=== PATIENT | female | born 1930 | race American Indian/Alaskan Native ===

== ENCOUNTER 2016-05-11 06:04 | Day surgery (SDC) | payer MEDICARE ==
[2016-05-08 11:57] LABS: Anion Gap 18 mmol/L; Blood Urea Nitrogen 20 mg/dL (7-17); Calcium 9.4 mg/dL (8.4-10.2); Carbon Dioxide 23 mmol/L (22-30); Glucose 117 mg/dL (65-100); Potassium 5.1 mmol/L (3.6-5.0); Sodium 141 mmol/L (137-145)
--- NOTE | 2016-05-08 17:57 | Anesthesia Consultation ---
Anesthesia Consult and Med Hx Date of service: 05/08/16 - Airway Anesthetic Teeth Evaluation: Partials ROM Head & Neck: Adequate Mental/Hyoid Distance: Adequate Mallampati Class: Class II Intubation Access Assessment: Probably Good (UPPER, LOWER) - Pulmonary Exam CTA: Yes - Cardiac Exam Cardiac Exam: RRR - Pre-Operative Health Status ASA Pre-Surgery Classification: ASA3 Proposed Anesthetic Plan: MAC - Pulmonary Hx Smoking: Yes (STOPPED X 30 YRS (2-3 PACKS PER WEEK)) Hx Asthma: No Hx Sleep Apnea: No (MARELY PRE SCREEN LOW RISK) - Cardiovascular System Hx Hypertension: Yes (X 30 YRS) Hx Coronary Artery Disease: Yes (ECHO 11/04: NORMAL EF) Hx Percutaneous Transluminal Coronary Angioplasty (PTCA): Yes (STENTS X 3) Hx Cardia Arrhythmia: Yes ("IRREGULAR HEARTBEAT") Hx Heart Murmur: Yes - Central Nervous System Hx Neuromuscular Disorder: Yes (RAYNAUDS SYNDROME, SCLERODERMA) Hx Seizures: No CVA: No Hx Psychiatric Problems: Yes (ANXIETY) - Endocrine Hx Renal Disease: No (ONE KIDNEY, NORMAL RENAL FUNCTION) Hx End Stage Renal Disease: No Hx Insulin Dependent Diabetes: No - Other Systems Hx Cancer: No Hx Obesity: No - Additional Comments Anesthesia Medical History Comments: CARDIAC CLEARANCE ON CHART
[~2016-05-11 06:04] MED LIST: NACL 0.9% 1000 ML 1,000 ML IV SCH; PEPCID PO NR
[2016-05-11] MEDS ORDERED: NACL BACTERIOSTATIC INFILTRATI ONE (06:22)
[2016-05-11] MEDS ORDERED: SUBLIMAZE ONE (07:10)
[2016-05-11] MEDS ORDERED: DIPRIVAN 10 MG/ML IV ONE ×2 (07:10→07:48)
[2016-05-11] MEDS ORDERED: CLEOCIN 900 MG/50 mL 900 MG/50 ML BAG IV SCH (07:23)
--- NOTE | 2016-05-11 07:24 | Anesthesia Day of Surgery ---
Anesthesia Day of Surgery - Day of Surgery Patient Examined: Yes Patient H&P Reviewed: Yes Patient is NPO: Yes
[2016-05-11] MEDS ORDERED: MARCAINE 0.25% INFILTRATI ONE ×2 (07:40)
[2016-05-11] MEDS ORDERED: XYLOCAINE 1% 20 mL INFILTRATI ONE ×2 (07:40)
[2016-05-11] MEDS ORDERED: ZOFRAN ONE (07:41)
[2016-05-11] MEDS ORDERED: NEO SYNEPHRINE ONE (07:41)
[2016-05-11] MEDS ORDERED: XYLOCAINE MPF 2% ONE (07:41)
[2016-05-11] MEDS ORDERED: NACL 0.9% 100 ML ONE (07:43)
[2016-05-11] MEDS ORDERED: ROBINUL ONE (07:45)
[2016-05-11] MEDS ORDERED: DECADRON IV ONE (08:01)
[2016-05-11 09:06] VITALS: BP 116/67
--- NOTE | 2016-05-11 09:36 | XRay Report ---
Right foot 2 views: History: Postop bunionectomy. Findings: Generalized demineralization. Stable bunionectomy. No acute fracture or dislocation or periosteal reaction or soft tissue calcification. Impression: Stable postop changes.
--- NOTE | 2016-05-11 10:45 | Operative Report ---
PREOPERATIVE DIAGNOSES: 1. Contracted second digit, right foot. 2. Contracted third digit, right foot. POSTOPERATIVE DIAGNOSES: 1. Contracted second digit, right foot. 2. Contracted third digit, right foot. SURGICAL PROCEDURE: 1. Arthroplasty, second digit, right foot. 2. Arthroplasty, third digit, right foot. ANESTHESIA: Local with IV sedation. TOURNIQUET: Pneumatic ankle tourniquet. DESCRIPTION OF PROCEDURE: The patient was given 900 mg of Cleocin secondary to penicillin allergy. At this time, a well-padded pneumatic ankle tourniquet was placed 2-3 cm proximal to the medial and lateral malleoli and at this time, the foot was then scrubbed, prepped and draped in the usual aseptic manner without incident and at this time, 4 mL of a 1:1 mixture of 1% lidocaine plain, 0.25% Marcaine plain was infiltrated to the second and third digits, 4 mL in volume. At this time, the foot was exsanguinated and tourniquet was inflated to 200 mmHg secondary to her Raynaud's disease. At this time, attention was directed to the contracted second digit and which the toe was directed in a medial direction. Therefore, a tear dropping incision was made at the distal interphalangeal joint with the base being laterally. There were 2 semi-converging elliptical incision was made at the proximal phalanx of the third digit without incident. At this time, the lips of tissues were both removed from the second and third digit and passed from the operative field. Arthroplasty was performed at the distal interphalangeal joint of the second digit and the proximal interphalangeal joint of the third digit with removal of the bone just proximal to the surgical neck. The area was contoured with rotating football bur. The area was flushed copiously with normal sterile saline. The tendon structure was closed with 4-0 Vicryl while the both toes were held in a more corrected position. At this time, 4.0 Prolene was used to coapt tissues with simple interrupted stitches. A 1 mL of dexamethasone phosphate was infiltrated in the infected site. The area was dressed with Adaptic saturated in iodine, 2 x 2's, 2-inch Kem, 3-inch Kem. The pneumatic ankle tourniquet was deflated with prompt hyperemic response to all digits of the affected toe. The patient will be transferred to recovery and once be monitored and dispensed with a postop surgical shoe and weightbearing to tolerance, and x-rays prior to discharge. The patient tolerated the procedure and anesthesia well. JOB# [id number] GILBERT/NTS
--- NOTE | 2016-05-12 02:02 | Admit Criteria Form ---
Admission Criteria Documentation: AMBULATORY SURGERY EXCEPTION CRITERIA Ambulatory Surgery Exception Criteria ( Place 'X' for any and all applicable criteria): Surgery or procedure performed on ambulatory basis may require inpatient stay for[A] ANY ONE of the following(1)(2)(3)(4)(5)(6)(7)(8)(9): [X] I. A preoperative situation, condition, or finding that warrants inpatient stay as indicated by ANY ONE of the following: [] a) Inpatient care needed because of severity of a disease or condition rather than the surgery (eg, severe cardiac or respiratory disease, severe infection) (15) (16 ) (17) (18) [] b) Emergent procedure (eg, angioplasty for acute ischemia)(19) [] c) Complex surgical approach or situation as indicated by ANY ONE of the following(3): [] i) Open approach needed instead of usual endoscopic, transcatheter, or other less invasive procedure [] ii) Difficult approach because of previous operation [] iii) Airway monitoring required after open neck procedures(20)(21) [] iv) Large mass requiring unusually extensive dissection [] v) Additional complicating feature requiring inpatient care (eg, drain management)(22(23): [X] d) Major surgery in a pt with high anesthetic risk as indicated by ANY ONE of the following (2)(3)(5)(7)(8): [X] i) ASA risk class III or higher (severe systemic disease impairing function) [D] [] ii) Advanced age (eg, older than 85 years)(14)(24) [] iii) Symptomatic heart failure(25) [] iv) Symptomatic asthma or COPD(8)(21) [] v) Morbid obesity with hemodynamic or respiratory problems(20)( 21)(26)(27) [] vi) Obstructive sleep apnea(20)(21) [] vii) Former premature infants who are younger than 60 weeks [] viii) High risk for severe postoperative abnormalities (eg, severe postoperative hypocalcemia after parathyroidectomy for severe hyperparathyroidism)(27)( 28) [] ix) Unstable angina(25) [] e) Drug-related risk requiring inpatient stay as indicated by ANY ONE of the following(5)(10)(14)(32)(33) [] i) Procedure requires discontinuing drugs or other therapy (eg , antiarrhythmic medication, antiseizure medication), which necessitates inpatient observation or treatment.(18)(31) [] ii) Major surgery and high risk drug use as indicated by ANY ONE of the following: [] 1) Active abuse of cocaine or similar drug [] 2) Monoamine oxidase inhibitor use [] 3) Other drug identified as posing risk [] f) Inadequate outpatient care situation as indicated by ANY ONE of the following(5)(10)(14)(32)(33) [] i) Patient lives remote from medical facility and procedure has urgent complication potential, and temporary nearby residence cannot be arranged [] ii) Patient will have postprocedure incapacitation and inadequate assistance at home, or alternative level of care cannot be arranged. [] iii) Patient will have long general anesthesia or procedure side effect resolution time, and competent person to stay with patient on first postoperative night at home or alternative level of care cannot be arranged. []iv) Other inadequate outpatient situation that cannot be handled by other means [] II. A perioperative event, condition, or finding that warrants inpatient stay as indicated by ANY ONE of the following (1)(2)(3): [] a) Inadequate physiologic recovery: cardiovascular, respiratory, or hemodynamic status not normal or near preoperative baseline(18) [] b) Hemodynamic instability [] c) Patient not alert with near normal or baseline mental status [] d) Temperature not normal or as expected and not appropriate for outpatient treatment of condition [] e) Ambulatory or appropriate activity level status not yet achieved post procedure [E](34)(35)(36) [] f) Operative site not appropriate (eg, unexpected or excessive drainage or bleeding) [] g) Postoperative effects not resolved or adequately managed (eg, significant pain or vomiting not appropriate for outpatient or next level of care)(10)(12) [] h) Complicating features requiring inpatient care as indicated by ANY ONE of the following(37): [] i) Severe complications of procedure (eg, bowel injury, airway compromise, vascular injury,severe hemorrhage) [] ii) Extensive (eg, dissection far beyond usual scope of procedure ) or prolonged (eg, 120 minutes beyond usual) surgery needed requiring inpatient postoperative care [] iii) Conversion to an open or complex procedure that requires inpatient care (eg, open vs laparoscopic cholecystectomy, abdominal vs vaginal hysterectomy)(38) [] iv) Comorbid condition or test result identified during or post procedure that requires inpatient care (7) [] v) Malignant hyperthermia(30) [] vi) Other complicating feature requiring inpatient care(22)(23) Inpatient stay may be needed until ALL of the following are present (1)(2)(3)(4) (5)(6)(10)(14)(33)(40): []a) Physiologic recovery: cardiovascular, respiratory, and hemodynamic status normal or near preoperative baseline []b) Hemodynamic stability []c) Patient alert, with near normal or baseline mental status []d) Temperature appropriate: patient afebrile or temperature appropriate for outpt treatment of condition []e) Activity level appropriate: ambulatory or appropriate activity level post procedure []f) Operative site appropriate as indicated by ALL of the following: []i) Site dry or with expected drainage []ii) Any blood noted is as expected for procedure. []g) Postoperative effects resolved or managed as indicated by ALL of the following: []i) Pain management appropriate for outpatient (or next level of) care(10) []ii) Minimal nausea and vomiting: if present, successfully treated with oral medication(12) []iii) Headache, dizziness, or drowsiness (if present) are mild. []h) Voiding status acceptable as indicated by ANY ONE of the following: []i) Voiding spontaneously []ii) No voiding but instructions given for follow-up in 6 to 8 hours []iii) Urinary catheter in place, and instructions given for follow-up []i) Complicating features requiring inpatient care manageable at a lower level of care(37) []j) Comorbid conditions manageable at a lower level of care(37) The original [employer] content created by [employer] has been revised. The portions of the content which have been revised are identified through the use of italic text or in bold, and [facility] [employer] has neither reviewed nor approved the modified material. All other unmodified content is copyright [employer]. Please see references footnoted in the original [employer] edition 2016 Admission Criteria Met: Yes
== END 2016-05-11 09:27 | disposition home or self-care (01) ==
LOC: OR 06:04
PROVIDERS: ATTEND Podiatrist Foot & Ankle Surgery
DX: M20.41 Other hammer toe(s) (acquired), right foot (principal); I10 Essential (primary) hypertension; I25.10 Atherosclerotic heart disease of native coronary artery without angina pectoris; I73.00 Raynaud's syndrome without gangrene; F41.9 Anxiety disorder, unspecified; Z95.5 Presence of coronary angioplasty implant and graft; Z87.891 Personal history of nicotine dependence
CPT/HCPCS: 28285; 36415; 73620; 80048; J1100; J2370; J2405; J2704; J3010; J7030

== ENCOUNTER 2017-11-21 10:21 | Inpatient (IN) | payer MEDICARE ==
[2017-11-21 11:24] LABS: Basophils # (Auto) 0.1 K/mm3 (0.0-0.1); Basophils % (Auto) 0.8 % (0.0-1.8); Eosinophils # (Auto) 0.1 K/mm3 (0.0-0.4); Eosinophils % (Auto) 0.9 % (0.0-4.3); Hematocrit 42.4 % (30.3-42.9); Lymphocytes # (Auto) 1.6 K/mm3 (1.2-5.4); Lymphocytes % (Auto) 18.7 % (13.4-35.0); Mean Corpuscular HGB Conc 33 % (30-34); Mean Corpuscular Hemoglobin 30 pg (28-32); Mean Corpuscular Volume 90 fl (79-97); Monocytes # (Auto) 0.5 K/mm3 (0.0-0.8); Monocytes % (Auto) 6.2 % (0.0-7.3); Platelet Count 171 K/mm3 (140-440); Red Blood Count 4.72 M/mm3 (3.65-5.03); Red Cell Distribution Width 15.1 % (13.2-15.2)
[2017-11-21 11:34] LABS: INR 0.95 (0.87-1.13)
[2017-11-21 11:35] LABS: Partial Thromboplastin Time 43.8 Sec. (24.2-36.6); Thrombin Time 17.6 Sec. (15.1-19.6)
[2017-11-21 11:42] LABS: BUN/Creatinine Ratio 16; Blood Urea Nitrogen 21 mg/dL (7-17); Calcium 9.7 mg/dL (8.4-10.2); Hemolysis Index 40
--- NOTE | 2017-11-21 11:44 | Emergency Department Report ---
ED General Adult HPI - General Chief complaint: Neuro Symptoms/Deficit Stated complaint: CHEST PAIN Time Seen by Provider: 11/21/17 11:17 Source: patient, family Mode of arrival: Ambulatory Limitations: No Limitations - History of Present Illness Initial comments: This is an 87-year-old female that has been placed on amiodarone, metoprolol was previously on other medications do include Plavix and lisinopril by her supervisor [employer] November 13. He states that since then she has been having intermittent tremors of the left arm. During these episodes the patient has difficulty with her use of her left arm such as an lifting and controlling objects. However, I do not believe she is experienced any independent weakness of the left arm without tremor. She was in contact with her supervisor [employer] Dr. Sosa who suggested that she get a neurological workup in the emergency department today. Patient is not currently suffering from tremor. She denies any focal weakness. She's had no headaches. She states that she has recently lost about 10 pounds associated with her recent diuresis. -: Gradual, week(s) Location: left, upper extremity (tremor nonpainful) - Related Data Home Medications Medication Instructions Recorded Confirmed Last Taken Amiodarone HCl [Amiodarone 100 MG 200 mg PO DAILY 11/21/17 11/21/17 Unknown TAB] Furosemide [Lasix] 20 mg PO DAILY 11/21/17 11/21/17 Unknown Lisinopril [Zestril] 10 mg PO DAILY 11/21/17 11/21/17 Unknown Metoprolol [Lopressor] 25 mg PO DAILY 11/21/17 11/21/17 Unknown Pravastatin [Pravachol] 20 mg PO QHS 11/21/17 11/21/17 Unknown Previous Rx's Medication Instructions Recorded Last Taken Type Aspirin [Adult Low Dose Aspirin EC] 81 mg PO DAILY #90 tablet. 12/17/16 Unknown Rx Clopidogrel Bisulfate [Plavix] 75 mg PO DAILY #90 tablet 12/17/16 Unknown Rx Allergies Allergy/AdvReac Type Severity Reaction Status Date / Time Penicillins Allergy Itching Verified 11/03/15 12:07 Sulfa (Sulfonamide Allergy Itching Verified 11/03/15 12:07 Antibiotics) Tetracyclines Allergy Itching Verified 11/03/15 12:07 ED Review of Systems ROS: Stated complaint: CHEST PAIN Other details as noted in HPI ED Past Medical Hx - Past Medical History Previous Medical History?: Yes Hx Hypertension: Yes (X 30 YRS) Hx GERD: Yes Hx Renal Disease: No (ONE KIDNEY, NORMAL RENAL FUNCTION) Hx Arthritis: Yes Hx Headaches / Migraines: Yes (MIGRAINES) Hx Seizures: No Hx Asthma: No Hx HIV: No Additional medical history: Raynaud's - Surgical History Past Surgical History?: Yes Hx Coronary Stent: Yes (X 3 2010; TAKES PLAVIX,ASA, "TOLD TO STOP 7 DAYS BEFORE SX") Hx Cholecystectomy: Yes () - Social History Smoking Status: Never Smoker Substance Use Type: None - Medications Home Medications: Home Medications Medication Instructions Recorded Confirmed Last Taken Type Aspirin [Adult Low Dose Aspirin EC] 81 mg PO DAILY #90 tablet. 12/17/16 Unknown Rx Clopidogrel Bisulfate [Plavix] 75 mg PO DAILY #90 tablet 12/17/16 11/21/17 Unknown Rx Amiodarone HCl [Amiodarone 100 MG 200 mg PO DAILY 11/21/17 11/21/17 Unknown History TAB] Furosemide [Lasix] 20 mg PO DAILY 11/21/17 11/21/17 Unknown History Lisinopril [Zestril] 10 mg PO DAILY 11/21/17 11/21/17 Unknown History Metoprolol [Lopressor] 25 mg PO DAILY 11/21/17 11/21/17 Unknown History Pravastatin [Pravachol] 20 mg PO QHS 11/21/17 11/21/17 Unknown History ED Physical Exam - General Limitations: No Limitations ED Course Vital Signs 11/21/17 11/21/17 11/21/17 10:39 11:13 11:30 Temperature 97.7 F Pulse Rate 81 70 70 Respiratory 16 21 18 Rate Blood Pressure 111/66 180/75 O2 Sat by Pulse 95 99 Oximetry 11/21/17 11/21/17 11/21/17 11:35 12:00 12:30 Temperature Pulse Rate 78 82 Respiratory 18 13 18 Rate Blood Pressure 180/75 178/111 O2 Sat by Pulse 95 83 L Oximetry - Reevaluation(s) Reevaluation #1: 11/21/17 13:00 Patient remains clinically stable. She had quite bit of ectopy on her EKG. Her renal function has worsened. Her potassium is 5.6. I believe there is ample reason to reduce the patient's potassium and give her judicious fluid as well as admit her to the hospital. I will discuss with Dr. Nieto ED Medical Decision Making - Lab Data Result diagrams: 11/21/17 11:10 11/21/17 11:10 Laboratory Results - last 24 hr 11/21/17 11/21/17 11/21/17 11:10 11:10 11:10 WBC 8.7 RBC 4.72 Hgb 14.0 Hct 42.4 MCV 90 MCH 30 MCHC 33 RDW 15.1 Plt Count 171 Lymph % (Auto) 18.7 [place] % (Auto) 6.2 Eos % (Auto) 0.9 Baso % (Auto) 0.8 Lymph # 1.6 [place] # 0.5 Eos # 0.1 Baso # 0.1 Seg Neutrophils % 73.4 H Seg Neutrophils # 6.4 PT 13.1 INR 0.95 APTT 43.8 H Thrombin Time 17.6 Sodium 140 Potassium 5.6 H Chloride 102.3 Carbon Dioxide 26 Anion Gap 17 BUN 21 H Creatinine 1.3 H Estimated GFR 47 BUN/Creatinine Ratio 16 Glucose 105 H Calcium 9.7 Troponin T < 0.010 - EKG Data -: EKG Interpreted by Me Rate: normal - EKG Data Interpretation: other (frequent PVCs P P pulmonale LVH and nonspecific ST-T wave changes) Critical care attestation.: If time is entered above; I have spent that time in minutes in the direct care of this critically ill patient, excluding procedure time. ED Disposition Clinical Impression: Hyperkalemia, Ventricular dysrhythmia Acute renal failure Qualifiers: Acute renal failure type: unspecified Qualified Code(s): N17.9 - Acute kidney failure, unspecified Cardiomyopathy Qualifiers: Cardiomyopathy type: unspecified Qualified Code(s): I42.9 - Cardiomyopathy, unspecified Disposition: 09 OP ADMIT IP TO THIS HOSP Is pt being admited?: Yes Does the pt Need Aspirin: Yes Condition: Stable Referrals: PRIMARY CARE, [Primary Care Provider] - 3-5 Days Time of Disposition: 13:11
[2017-11-21] MEDS ORDERED: NACL 0.9% 1000 ML 1,000 ML IV ONE (12:50)
--- NOTE | 2017-11-21 12:52 | Cat Scan Report ---
FINAL REPORT EXAM: CT HEAD/BRAIN WO CON HISTORY: difficulty walking, trembling to left side TECHNIQUE: CT of the Head without IV contrast. PRIORS: None currently available. FINDINGS: Decreased attenuation regions in the periventricular and subcortical white matter are nonspecific and may represent small vessel ischemic disease, encephalopathy, edema, or a demyelinating process. Small vessel ischemic disease (leukoaroaiosis) favored. Vascular calcifications. There is no evidence for acute ischemia. There is no hemorrhage. There is no midline shift. There is no hydrocephalus. There is no mass. Age appropriate gonzalez-white matter attenuation is noted. There is no calvarial fracture. The temporal bones demonstrate aerated mastoid air cells. The middle ears appear unremarkable. Paranasal sinuses are unremarkable. Globes are intact. IMPRESSION: No acute intracranial findings. Chronic ischemic disease.
[2017-11-21] MEDS ORDERED: KIONEX PO ONE (12:53)
[2017-11-21] MEDS ORDERED: BABY ASPIRIN PO ONE (13:12)
--- NOTE | 2017-11-21 13:12 | History and Physical Report ---
History of Present Illness Chief complaint: She is weak History of present illness: 87 YO Female with HTN, OA, Migraine LUGO, Raynauds Phenomenon, GERD, CAD S/P Stent Placement on DAPT presents to ED for evaluation. Pt is confused but provides limited history. Pt family is at bedside and provides detailed history. Pt family reports that patient has experienced intermittent left arm tremors, weakness, and confusion. No reports of fever, chill, CP, palpitations, NVD, Trauma, syncope, BRBPR, Vertigo, productive cough, or recent ill contacts. Pt seen and evaluated in ED and found to have ARF, Encephalopathy, and hyperkalemia. Pt admitted to [facility] Unit. Past History Past Medical History: arthritis, GERD, hypertension, migraines Past Surgical History: cholecystectomy, Other (Cardiac stent) Social history: . denies: smoking, alcohol abuse, prescription drug abuse Family history: hypertension Medications and Allergies Allergies Allergy/AdvReac Type Severity Reaction Status Date / Time Penicillins Allergy Itching Verified 11/03/15 12:07 Sulfa (Sulfonamide Allergy Itching Verified 11/03/15 12:07 Antibiotics) Tetracyclines Allergy Itching Verified 11/03/15 12:07 Home Medications Medication Instructions Recorded Confirmed Last Taken Type Aspirin [Adult Low Dose Aspirin EC] 81 mg PO DAILY #90 tablet. 12/17/16 Unknown Rx Clopidogrel Bisulfate [Plavix] 75 mg PO DAILY #90 tablet 12/17/16 11/21/17 Unknown Rx Amiodarone HCl [Amiodarone 100 MG 200 mg PO DAILY 11/21/17 11/21/17 Unknown History TAB] Furosemide [Lasix] 20 mg PO DAILY 11/21/17 11/21/17 Unknown History Lisinopril [Zestril] 10 mg PO DAILY 11/21/17 11/21/17 Unknown History Metoprolol [Lopressor] 25 mg PO DAILY 11/21/17 11/21/17 Unknown History Pravastatin [Pravachol] 20 mg PO QHS 11/21/17 11/21/17 Unknown History Active Meds: Active Medications Aspirin (Baby Aspirin) 81 mg PO ONCE ONE Stop: 11/21/17 13:13 Sodium Chloride (Nacl 0.9% 1000 Ml) 1,000 mls @ 125 mls/hr IV ONCE ONE Stop: 10/03/18 20:49 Review of Systems Constitutional: weakness, no weight loss, no weight gain, no fever, no chills Ears, nose, mouth and throat: no ear pain, no ear discharge, no tinnitis, no decreased hearing, no nose pain, no nasal congestion, no sinus pressure Breasts: no change in shape, no swelling, no mass Cardiovascular: no chest pain, no orthopnea, no palpitations, no rapid/ irregular heart beat, no edema, no syncope Gastrointestinal: no abdominal pain, no nausea, no vomiting, no diarrhea, no constipation, no change in bowel habits Genitourinary Female: no dyspareunia, no dysmenorrhea, no pelvic pain, no flank pain, no menorrhagia, no dysuria, no urinary frequency, no urgency Menstruation: no premenarcheal, no post hysterectomy Rectal: no pain, no incontinence, no bleeding Musculoskeletal: no neck stiffness, no neck pain, no shooting arm pain, no arm numbness/tingling, no low back pain, no shooting leg pain Integumentary: no deferred, no rash, no pruritis, no redness, no sores, no wounds, no blisters Neurological: no head injury, no transient paralysis, no weakness, no parathesias, no numbness, no tingling, no seizures Psychiatric: no anxiety, no memory loss, no sleep disturbances, no insomnia, no hypersomnia, no change in appetite Endocrine: no cold intolerance, no heat intolerance, no polyphagia, no excessive thirst, no polydipsia, no polyuria, no nocturia Hematologic/Lymphatic: no easy bruising, no easy bleeding, no lymphadenopathy, no lymphedema Allergic/Immunologic: no urticaria, no allergic rhinitis, no wheezing, no persistent infections, no anaphylaxis, no angioedema Exam - Constitutional Vitals: Temp Pulse Resp BP Pulse Ox 97.7 F 82 18 178/111 83 L 11/21/17 10:39 11/21/17 12:30 11/21/17 12:30 11/21/17 12:30 11/21/17 12:30 General appearance: Present: mild distress - EENT Eyes: Present: PERRL ENT: hearing intact, clear oral mucosa - Neck Neck: Present: supple, normal ROM - Respiratory Respiratory effort: normal Respiratory: bilateral: CTA - Cardiovascular Heart Sounds: Present: S1 & S2. Absent: rub, click - Extremities Extremities: pulses symmetrical, No edema Peripheral Pulses: within normal limits - Abdominal General gastrointestinal: Present: soft, non-tender, non-distended, normal bowel sounds Female genitourinary: Present: normal - Integumentary Integumentary: Present: clear, warm, dry - Musculoskeletal Musculoskeletal: gait normal, strength equal bilaterally - Psychiatric Psychiatric: no appropriate mood/affect, no intact judgment & insight - Neurologic Neurologic: CNII-XII intact, moves all extremities Results - Labs CBC & Chem 7: 11/21/17 11:10 11/21/17 11:10 Labs: Abnormal lab results 11/21/17 11/21/17 11/21/17 Range/Units 11:10 11:10 11:10 Seg Neutrophils % 73.4 H (40.0-70.0) % APTT 43.8 H (24.2-36.6) Sec. Potassium 5.6 H (3.6-5.0) mmol/L BUN 21 H (7-17) mg/dL Creatinine 1.3 H (0.7-1.2) mg/dL Glucose 105 H (65-100) mg/dL Assessment and Plan - Patient Problems (1) ARF (acute renal failure) with tubular necrosis Current Visit: Yes Status: Acute Plan to address problem: IVF resuscitation therapy, monitor uop q shift, repeat bmp to monitor serum creatnine. (2) Severe malnutrition Current Visit: Yes Status: Acute Plan to address problem: Encourage increased oral intake, supportive care, encourage increased oral intake. (3) Encephalopathy Current Visit: Yes Status: Acute Plan to address problem: CT Head, neuro checks, seizure precautions, supportive care. (4) DVT prophylaxis Current Visit: Yes Status: Acute Plan to address problem: SCD to BLE while in bed.
[2017-11-21] MEDS ORDERED: TYLENOL PO PRN (13:15)
[2017-11-21] MEDS ORDERED: SODIUM CHLORIDE FLUSH SYRINGE 10 ML IV PRN (13:15)
[2017-11-21] MEDS ORDERED: ZOFRAN IV PRN (13:15)
--- NOTE | 2017-11-21 13:43 | XRay Report ---
AP CHEST: HISTORY: Hypertension The lungs are hyperinflated suggesting underlying emphysematous changes. Scattered calcified granulomas are noted in both lungs. No evidence for pneumonia, pleural effusion or pneumothorax. Mild cardiomegaly is noted. The bony structures are demineralized but grossly intact. No significant change since 12/16/16. IMPRESSION: Hyperinflated lungs. Mild cardiomegaly.
[2017-11-21] MEDS ORDERED: NACL 0.45% 1000 ML 1,000 ML IV SCH (14:00)
[2017-11-21] MEDS ORDERED: BABY ASPIRIN ONE (15:16)
[2017-11-21] MEDS: PRAVACHOL PO SCH (22:25)
[2017-11-21] MEDS: SODIUM CHLORIDE FLUSH SYRINGE 10 ML IV SCH (22:26)
--- NOTE | 2017-11-22 08:11 | Progress Note ---
Assessment and Plan Assessment and plan: 87 YO Female with HTN, OA, Migraine LUGO, Raynauds Phenomenon, GERD, CAD S/P Stent Placement november 13 on DAPT presents to ED for evaluation. Pt is confused but provides limited history. Pt family is at bedside and provides detailed history. Pt family reports that patient has experienced intermittent left arm tremors, weakness, and confusion. patient was refered by primary retail special event associate for evaluation of tremor. No reports of fever, chill, CP, palpitations, NVD, Trauma, syncope, BRBPR, Vertigo, productive cough, or recent ill contacts. Pt seen and evaluated in ED and found to have ARF, Encephalopathy , and hyperkalemia. - Patient Problems (1) ARF (acute renal failure) with tubular necrosis Current Visit: Yes Status: Acute Plan to address problem: IVF resuscitation therapy, monitor uop q shift, repeat bmp to monitor serum creatnine. (2) Severe malnutrition Current Visit: Yes Status: Acute Plan to address problem: Encourage increased oral intake, supportive care, encourage increased oral intake. (3) Encephalopathy Current Visit: Yes Status: Acute Plan to address problem: CT Head, neuro checks, seizure precautions, supportive care. Neurology consult Check Urinalysis (4) Intermittent left arm tremor -check TSH, PT/OT eval (5)Advanced Age -fall precautions -delirium prevention precautions -stool softeners. (6)DVT prophylaxis Current Visit: Yes Status: Acute Plan to address problem: SCD to BLE while in bed. History Interval history: Patient seen and examined in no acute distress Hospitalist Physical - Physical exam Narrative exam: VITAL SIGNS: Reviewed. GENERAL: The patient appeared well nourished and normally developed. Vital signs as documented. HEAD: No signs of head trauma. Temporal wasting and cachexia EYES: Pupils are equal. Extraocular motions intact. EARS: Hearing grossly intact. MOUTH: Oropharynx is normal. NECK: No adenopathy, no JVD. CHEST: Chest with clear breath sounds bilaterally. No wheezes, rales, or rhonchi. CARDIAC: Regular rate and rhythm. S1 and S2, without murmurs, gallops, or rubs. VASCULAR: No Edema. Peripheral pulses normal and equal in all extremities. ABDOMEN: Soft, without detectable tenderness. No sign of distention. No rebound or guarding, and no masses palpated. Bowel Sounds normal. MUSCULOSKELETAL: Good range of motion of all major joints. Extremities without clubbing, cyanosis or edema. NEUROLOGIC EXAM: Alert and oriented x 3. No focal sensory or strength deficits. Speech normal. Follows commands. PSYCHIATRIC: Mood normal. SKIN: No rash or lesions. - Constitutional Vitals: Temp Pulse Resp BP Pulse Ox 97.3 F L 63 18 136/61 100 11/22/17 07:40 11/22/17 07:40 11/22/17 07:40 11/22/17 07:40 11/22/17 07:40 General appearance: Present: mild distress Results - Labs CBC & Chem 7: 11/21/17 11:10 11/22/17 08:49 Labs: Laboratory Last Values WBC 8.7 K/mm3 (4.5-11.0) 11/21/17 11:10 RBC 4.72 M/mm3 (3.65-5.03) 11/21/17 11:10 Hgb 14.0 gm/dl (10.1-14.3) 11/21/17 11:10 Hct 42.4 % (30.3-42.9) 11/21/17 11:10 MCV 90 fl (79-97) 11/21/17 11:10 MCH 30 pg (28-32) 11/21/17 11:10 MCHC 33 % (30-34) 11/21/17 11:10 RDW 15.1 % (13.2-15.2) 11/21/17 11:10 Plt Count 171 K/mm3 (140-440) 11/21/17 11:10 Lymph % (Auto) 18.7 % (13.4-35.0) 11/21/17 11:10 [place] % (Auto) 6.2 % (0.0-7.3) 11/21/17 11:10 Eos % (Auto) 0.9 % (0.0-4.3) 11/21/17 11:10 Baso % (Auto) 0.8 % (0.0-1.8) 11/21/17 11:10 Lymph # 1.6 K/mm3 (1.2-5.4) 11/21/17 11:10 [place] # 0.5 K/mm3 (0.0-0.8) 11/21/17 11:10 Eos # 0.1 K/mm3 (0.0-0.4) 11/21/17 11:10 Baso # 0.1 K/mm3 (0.0-0.1) 11/21/17 11:10 Seg Neutrophils % 73.4 % (40.0-70.0) H 11/21/17 11:10 Seg Neutrophils # 6.4 K/mm3 (1.8-7.7) 11/21/17 11:10 PT 13.1 Sec. (12.2-14.9) 11/21/17 11:10 INR 0.95 (0.87-1.13) 11/21/17 11:10 APTT 43.8 Sec. (24.2-36.6) H 11/21/17 11:10 Thrombin Time 17.6 Sec. (15.1-19.6) 11/21/17 11:10 Sodium 140 mmol/L (137-145) 11/21/17 11:10 Potassium 5.6 mmol/L (3.6-5.0) H 11/21/17 11:10 Chloride 102.3 mmol/L (98-107) 11/21/17 11:10 Carbon Dioxide 26 mmol/L (22-30) 11/21/17 11:10 Anion Gap 17 mmol/L 11/21/17 11:10 BUN 21 mg/dL (7-17) H 11/21/17 11:10 Creatinine 1.3 mg/dL (0.7-1.2) H 11/21/17 11:10 Estimated GFR 47 ml/min 11/21/17 11:10 BUN/Creatinine Ratio 16 % 11/21/17 11:10 Glucose 105 mg/dL (65-100) H 11/21/17 11:10 Calcium 9.7 mg/dL (8.4-10.2) 11/21/17 11:10 Troponin T < 0.010 ng/mL (0.00-0.029) 11/21/17 11:10 - Imaging and Cardiology Chest x-ray: image reviewed (acute pathology)
[2017-11-22 09:13] LABS: BUN/Creatinine Ratio 16; Blood Urea Nitrogen 14 mg/dL (7-17); Calcium 8.5 mg/dL (8.4-10.2); Hemolysis Index 9
[2017-11-22] MEDS: LASIX PO SCH (09:28)
[2017-11-22] MEDS: PLAVIX PO SCH (09:28)
[2017-11-22] MEDS: HALFPRIN EC PO SCH (09:28)
[2017-11-22] MEDS: LOPRESSOR PO SCH (09:31)
[2017-11-22] MEDS: ZESTRIL PO SCH (09:31)
[2017-11-22] MEDS: SODIUM CHLORIDE FLUSH SYRINGE 10 ML IV SCH ×2 (09:32→22:01)
[2017-11-22] MEDS: CORDARONE PO SCH (09:33)
[2017-11-22] MEDS ORDERED: NON-FORMULARY (Amiodarone Hcl [Amiodarone 100 Mg Tab] 200 MG) PO SCH (10:00)
[2017-11-22 12:46] LABS: Bacteria,Urine 1+ /HPF (Negative); Bilirubin,Urine NEG (Negative); Blood,Urine SM (Negative); Color,Urine Straw (Yellow); Protein,Urine <15 mg/dL mg/dL (Negative); Urobilinogen,Urine < 2.0 mg/dL (<2.0); WBC,Urine < 1.0 /HPF (0.0-6.0)
--- NOTE | 2017-11-22 13:39 | Progress Note ---
Subjective Date of service: 11/22/17 Interval history: patient is seen and cleared for discharge at this time she can continue plavix and aspirin let cardiology decide on arrhythmia treatment plan to f/u in the office suspect this was TIA CT shows no acute stroke alot of atrophy Objective - Vital Sign Vital Signs - 12hr 11/22/17 11/22/17 11/22/17 02:26 07:40 09:31 Temperature 98.2 F 97.3 F L Pulse Rate 42 L 63 63 Respiratory 20 18 Rate Blood Pressure 119/44 136/61 136/61 O2 Sat by Pulse 99 100 Oximetry - Laboratory Findings CBC and BMP: 11/21/17 11:10 11/22/17 08:49 Abnormal Lab Findings: Abnormal Labs 11/21/17 11/21/17 11/21/17 11:10 11:10 11:10 Seg Neutrophils % 73.4 H APTT 43.8 H Potassium 5.6 H Chloride BUN 21 H Creatinine 1.3 H Glucose 105 H 11/22/17 08:49 Seg Neutrophils % APTT Potassium Chloride 108.3 H BUN Creatinine Glucose 122 H
[2017-11-22] MEDS ORDERED: SENOKOT PO SCH (22:00)
[2017-11-22] MEDS: PRAVACHOL PO SCH (22:00)
--- NOTE | 2017-11-23 00:18 | Consultation ---
HISTORY OF PRESENT ILLNESS: This is an 87-year-old black female that presents to [facility] with a primary history of chest pain, confusion. She presented to the hospital, initially seen by the Emergency Room physician on 11/21/2017. She was complaining of difficulty with some clumsiness, possibility of having a stroke, some chest pain. She had a high pulse rate, had been seeing a cooker pie filling recently for atrial flutter more likely had been taking Plavix 75 mg, which I believe she was taking for stent and low-dose aspirin. She also took furosemide, lisinopril, metoprolol, and pravastatin. She denied a prior history of stroke. After seeing in the Emergency Room, the symptoms subsequently cleared and current review of her CT of the head shows widespread atrophy, slight white matter changes, cortical atrophy noted frontally. She has calcification of the basal ganglia, globus pallidus bilaterally right greater than left. There is normal third and fourth ventricle. There is some calcification within the choroid plexus of the fourth ventricle, which is a physiological finding. The remainder of the CT scan of the head is essentially unremarkable except for slight calcifications and some of the vessels. 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 She does not smoke or drink. FAMILY HISTORY: Unremarkable for stroke. ALLERGIES: She has no known allergies. PHYSICAL EXAMINATION: GENERAL: On my examination, she is alert, responsive. NEUROLOGIC: Affect is appropriate. Speech is clear. Motor and sensory examination is normal. Office Associate strength is equal. No motor findings as noted. The patient has a very good gait for stated age of 87. She is fully oriented and appropriate. Speech is good. Cranial nerves 2-12 are intact. No focal motor weakness is noted. No tremors. No asterixis. IMPRESSION AND PLAN: I am suspecting this patient probably did have a transient ischemic attack at the time she was having a cardiac arrhythmia. Given her age of 87, I would feel comfortable with continuing to treat her with Plavix and aspirin therapy with perhaps an agent that may alter her cardiac arrhythmia. We will follow up with her in the office. I gave her a copy of my office address and asked to return to see me. I believe she may be discharged at this point, clearing her for discharge. JOB# [id number] DEE/NTS
--- NOTE | 2017-11-23 08:17 | Discharge Summary ---
Providers - Providers Date of Admission: 11/21/17 13:15 Attending physician: DAVID CUADRA MD 11/22/17 08:09 Consult to Physician [CONS] Routine Comment: called answ. serv. @[id number]/ leah Consulting Provider: MICHAEL WISEMAN Physician Instructions: Reason For Exam: intermittent tremor 11/22/17 08:14 Occupational Therapy Evaluate and Treat [CONS] Routine Comment: Reason For Exam: weakness and ataxia 11/22/17 08:15 Physical Therapy Evaluation and Treat [CONS] Routine Comment: Reason For Exam: ataxia Primary care physician: SNUFF PACKING MACHINE OPERATOR Hospitalization Reason for admission: TIA Condition: Stable Hospital course: 87 YO Female with HTN, OA, Migraine LUGO, Raynauds Phenomenon, GERD, CAD S/P Stent Placement november 13 on DAPT presents to ED for evaluation. Pt is confused but provides limited history. Pt family is at bedside and provides detailed history. Pt family reports that patient has experienced intermittent left arm tremors, weakness, and confusion. patient was refered by primary tool and die maker/designer for evaluation of tremor. No reports of fever, chill, CP, palpitations, NVD, Trauma, syncope, BRBPR, Vertigo, productive cough, or recent ill contacts. Pt seen and evaluated in ED and found to have ARF, Encephalopathy , and hyperkalemia. Pateint was seen by Nuerology and cleared. Imaging studes where unremarkable for acute pathology. Renal function improved. Continued outpatient following (1) ARF (acute renal failure) with tubular necrosis (2) Severe malnutrition (3) Encephalopathy (4) Intermittent left arm tremor (5)Advanced Age Disposition: - TO HOME OR SELFCARE Time spent for discharge: 35 MINS Core Measure Documentation - Palliative Care Palliative Care/ Comfort Measures: Not Applicable - Core Measures Any of the following diagnoses?: none - VTE Discharge Requirements Deep Vein Thrombosis/Pulmonary Embolism Present on Admission: No Exam - Physical Exam Narrative exam: VITAL SIGNS: Reviewed. GENERAL: The patient appeared well nourished and normally developed. Vital signs as documented. HEAD: No signs of head trauma. Temporal wasting and cachexia EYES: Pupils are equal. Extraocular motions intact. EARS: Hearing grossly intact. MOUTH: Oropharynx is normal. NECK: No adenopathy, no JVD. CHEST: Chest with clear breath sounds bilaterally. No wheezes, rales, or rhonchi. CARDIAC: Regular rate and rhythm. S1 and S2, without murmurs, gallops, or rubs. VASCULAR: No Edema. Peripheral pulses normal and equal in all extremities. ABDOMEN: Soft, without detectable tenderness. No sign of distention. No rebound or guarding, and no masses palpated. Bowel Sounds normal. MUSCULOSKELETAL: Good range of motion of all major joints. Extremities without clubbing, cyanosis or edema. NEUROLOGIC EXAM: Alert and oriented x 3. No focal sensory or strength deficits. Speech normal. Follows commands. PSYCHIATRIC: Mood normal. SKIN: No rash or lesions. - Constitutional Vitals: Temp Pulse Resp BP Pulse Ox 97.4 F L 61 16 135/51 99 11/23/17 01:56 11/23/17 02:00 11/23/17 01:56 11/23/17 01:56 11/23/17 01:56 Plan Activity: advance as tolerated, fall precautions Diet: low cholesterol Special Instructions: record daily BP diary Follow up with: PRIMARY CAREMD [Primary Care Provider] - 3-5 Days
[2017-11-23] MEDS: HALFPRIN EC PO SCH (10:37)
[2017-11-23] MEDS: LASIX PO SCH (10:37)
[2017-11-23] MEDS: PLAVIX PO SCH (10:37)
[2017-11-23] MEDS: SODIUM CHLORIDE FLUSH SYRINGE 10 ML IV SCH (10:38)
[2017-11-23] MEDS: CORDARONE PO SCH (10:38)
[2017-11-23] MEDS: ZESTRIL PO SCH (10:40)
[2017-11-23] MEDS: LOPRESSOR PO SCH (10:42)
[2017-11-23 12:07] VITALS: BP 129/63
== END 2017-11-23 12:08 | disposition home health service (06) | DRG 682 ==
LOC: ED 10:21 → 2B-ACE 13:15
PROVIDERS: ADMIT Internal Medicine; ATTEND Internal Medicine
DX: N17.0 Acute kidney failure with tubular necrosis (principal); E43 Unspecified severe protein-calorie malnutrition; G93.40 Encephalopathy, unspecified; Z68.1 Body mass index [BMI] 19.9 or less, adult; I42.9 Cardiomyopathy, unspecified; I10 Essential (primary) hypertension; M19.90 Unspecified osteoarthritis, unspecified site; G43.909 Migraine, unspecified, not intractable, without status migrainosus; K21.9 Gastro-esophageal reflux disease without esophagitis; I25.10 Atherosclerotic heart disease of native coronary artery without angina pectoris; E87.5 Hyperkalemia; G25.2 Other specified forms of tremor; Z90.49 Acquired absence of other specified parts of digestive tract; Z95.5 Presence of coronary angioplasty implant and graft; Z82.49 Family history of ischemic heart disease and other diseases of the circulatory system; Z88.0 Allergy status to penicillin; Z88.2 Allergy status to sulfonamides; Z88.1 Allergy status to other antibiotic agents; Z79.82 Long term (current) use of aspirin; Z79.899 Other long term (current) drug therapy
CPT/HCPCS: 36415; 70450; 71045; 80048; 81001; 84439; 84443; 84484; 85025; 85610; 85670; 85730; 93005; 93010; 96360; 96361; A9270-GY; G8978-GP; G8980-GP; G8987-GO; G8988-GO; G8989-GO; J7030